=== PATIENT | male | born 1965 | race Caucasian/White ===

== ENCOUNTER 2017-10-02 18:31 | Emergency (ER) | payer OTHER ==
[~2017-10-02] VITALS: Ht 162.6 cm; Wt 77.1 kg
[~2017-10-02 18:31] MED LIST: PERCOCET 5-3251 EACH; XANAX2 MG
== END 2017-10-02 23:03 | disposition home or self-care (01) ==
LOC: ER 18:31
DX: M54.5 Low back pain (principal); L03.116 Cellulitis of left lower limb